=== PATIENT | female | born 1990 | race Hispanic/Latino ===

== ENCOUNTER 2022-09-01 22:29 | Inpatient (IN) | payer BC ==
[~2022-09-01] VITALS: Ht 154.9 cm; Wt 165.6 kg
[2022-09-01] MEDS ORDERED: ONDANSETRON HCL INJ 2MG/ML 2ML 2 MG/ML VIAL IV STA (22:49)
[2022-09-01] MEDS ORDERED: ONDANSETRON HCL INJ 2MG/ML 2ML 2 MG/ML VIAL ONE (22:53)
[2022-09-01] MEDS ORDERED: Morphine 4mg INJECTION 4 MG/ML INJ ONE (22:53)
[2022-09-01] MEDS ORDERED: SODIUM CHLORIDE 0.9% 1000ML 1,000 ML ONE (22:54)
[2022-09-01] MEDS ORDERED: SODIUM CHLORIDE 0.9% 1000ML 1,000 ML IV ONE (23:00)
[2022-09-01] MEDS ORDERED: Morphine 4mg INJECTION 4 MG/ML INJ IV ONE (23:00)
[2022-09-01 23:07] LABS: BASOPHILS # (AUTO) 0.1 (0.0-0.1); BASOPHILS % 0.5 % (0.0-1.0); EOSINOPHILS # (AUTO) 0.3 (0.0-0.4); EOSINOPHILS % 2.4 % (0.0-6.0); HEMOGLOBIN 14.9 g/dL (12.0-16.0); LYMPHOCYTES # (AUTO) 2.7 (1.0-3.2); LYMPHOCYTES % 20.9 % (18.0-39.1); MEAN CORPUSCULAR HEMOGLOBIN 31.1 pg (28-32); MEAN CORPUSCULAR HGB CONC 34.7 g/dL (31-35); MEAN CORPUSCULAR VOLUME 89.8 fL (81-99); MONOCYTES # (AUTO) 0.8 (0.2-0.8); MONOCYTES % 6.2 % (4.4-11.3); NEUTROPHILS # (AUTO) 8.9 (2.1-6.9); NEUTROPHILS % 69.5 % (38.7-80.0); PLATELET COUNT 375 x10e3/uL (140-360); RED BLOOD COUNT 4.79 x10e6/uL (3.6-5.1); RED CELL DISTRIBUTION WIDTH 12.5 % (11.7-14.4)
[2022-09-01 23:08] LABS: CLARITY,URINE SL CLOUDY (CLEAR); COLOR,URINE YELLOW (YELLOW)
[2022-09-01 23:09] LABS: KETONES,URINE NEGATIVE (NEGATIVE); LEUKOCYTE ESTERASE ,URINE TRACE (NEGATIVE); NITRITE,URINE NEGATIVE (NEGATIVE); PROTEIN,URINE DIPSTICK 2+ (NEGATIVE)
[2022-09-01 23:12] LABS: BACTERIA,URINE FEW /HPF; EPITHELIAL CELLS,URINE FEW /LPF
[2022-09-01 23:27] LABS: ALANINE AMINOTRANSFERASE 51 IU/L (0-55); ALBUMIN/GLOBULIN RATIO 1.1 (0.8-2.0); ALKALINE PHOSPHATASE 98 IU/L (40-150); ANION GAP 16.5 mmol/L (8-16); BLOOD UREA NITROGEN 11 mg/dL (7-26); BUN/CREATININE RATIO 14 (6-25); CALCIUM 9.6 mg/dL (8.4-10.2); CARBON DIOXIDE 23 mmol/L (22-29); CHLORIDE 105 mmol/L (98-107); CREATININE, SERUM 0.81 mg/dL (0.57-1.11); GLUCOSE 126 mg/dL (74-118); LIPASE 21 U/L (8-78); POTASSIUM 3.5 mmol/L (3.5-5.1); SODIUM 141 mmol/L (136-145)
[2022-09-02] MEDS ORDERED: KETOROLAC TROMETHAMINE 30 MG/ML VIAL IV STA
[2022-09-02] MEDS ORDERED: KETOROLAC TROMETHAMINE 30 MG/ML VIAL ONE (00:04)
[2022-09-02] MEDS ORDERED: IOPAMIDOL 370 MG/ML 100 ML INFUS..BTL INJ ONE (01:11)
[2022-09-02] MEDS ORDERED: PIPERACILLIN/TAZOBACTAM 4.5 GM in SODIUM CHLORIDE 0.9% 100 ML IV SCH (03:30)
[2022-09-02] MEDS: Morphine 4mg INJECTION 4 MG/ML INJ IV PRN ×2 (03:54→08:15)
[2022-09-02] MEDS: ONDANSETRON HCL INJ 2MG/ML 2ML 2 MG/ML VIAL IV PRN ×2 (03:54→08:12)
[2022-09-02] MEDS: SODIUM CHLORIDE 0.9% 1000ML 1,000 ML IV SCH ×3 (03:54→22:21)
[2022-09-02] MEDS: PIPERACILLIN/TAZOBACTAM 4.5 GM in SODIUM CHLORIDE 0.9% 100 ML IV SCH ×3 (10:35→22:21)
[2022-09-02 13:30] VITALS: BP 164/92; PULSE 85; RESP 18; TEMP 98.6; O2SAT 99
[2022-09-02] MEDS ORDERED: BUPIVACAINE 0.5%/EPI 30 ML SDV INJ ONE (13:40)
[2022-09-02] MEDS ORDERED: BUPIVACAINE 0.25% 30ML SDV ONE (13:40)
[2022-09-02] MEDS ORDERED: NAPROXEN250 MG PO (15:47)
[2022-09-02] MEDS ORDERED: NEXIUM40 MG PO (15:47)
[2022-09-02 15:54] VITALS: BP 164/92; O2SAT 99
[2022-09-02 16:20] VITALS: BP 151/88
[2022-09-02 20:15] VITALS: BP 140/84; PULSE 93; RESP 18; TEMP 98.6; O2SAT 99
[2022-09-03] VITALS (7 sets, daily range): BP systolic 130–157; BP diastolic 74–96; PULSE 72–88; RESP 17–21; TEMP 97.4–99.3; O2SAT 96–100
[2022-09-03] MEDS: PIPERACILLIN/TAZOBACTAM 4.5 GM in SODIUM CHLORIDE 0.9% 100 ML IV SCH ×4 (04:52→19:45)
[2022-09-03] MEDS: SODIUM CHLORIDE 0.9% 1000ML 1,000 ML IV SCH (04:52)
[2022-09-03 05:35] LABS: BASOPHILS % 0.5 % (0.0-1.0); EOSINOPHILS # (AUTO) 0.2 (0.0-0.4); EOSINOPHILS % 2.2 % (0.0-6.0); HEMATOCRIT 40.1 % (34.2-44.1); HEMOGLOBIN 13.2 g/dL (12.0-16.0); LYMPHOCYTES # (AUTO) 1.1 (1.0-3.2); LYMPHOCYTES % 14.9 % (18.0-39.1); MEAN CORPUSCULAR HEMOGLOBIN 31.1 pg (28-32); MEAN CORPUSCULAR HGB CONC 32.9 g/dL (31-35); MEAN CORPUSCULAR VOLUME 94.4 fL (81-99); MONOCYTES # (AUTO) 0.6 (0.2-0.8); MONOCYTES % 7.5 % (4.4-11.3); NEUTROPHILS # (AUTO) 5.6 (2.1-6.9); NEUTROPHILS % 74.5 % (38.7-80.0); PLATELET COUNT 317 x10e3/uL (140-360); RED BLOOD COUNT 4.25 x10e6/uL (3.6-5.1); RED CELL DISTRIBUTION WIDTH 12.8 % (11.7-14.4)
[2022-09-03 05:46] LABS: INR 1.01; PARTIAL THROMBOPLASTIN TIME 25.9 seconds (23.8-35.5); PROTHROMBIN TIME 13.8 seconds (11.9-14.5)
[2022-09-03 06:02] LABS: ALBUMIN 3.2 g/dL (3.5-5.0); ALBUMIN/GLOBULIN RATIO 0.9 (0.8-2.0); ANION GAP 12.6 mmol/L (8-16); CALCIUM 8.8 mg/dL (8.4-10.2); CREATININE, SERUM 0.67 mg/dL (0.57-1.11); POTASSIUM 3.6 mmol/L (3.5-5.1)
[2022-09-03] MEDS ORDERED: BUPIVACAINE 0.5%/EPI 30 ML SDV INJ ONE (09:57)
[2022-09-03] MEDS ORDERED: ACETAMINOPHEN 1000 MG/100 ML 100 ML IV ONE (10:16)
[2022-09-03] MEDS ORDERED: IOPAMIDOL 300MG/ML 100 ML INFUS..BTL IV ONE (10:38)
[2022-09-03] MEDS ORDERED: IOPAMIDOL 610MG/1ML 300 MG/ML VIAL IV ONE ×2 (10:41→12:16)
[2022-09-03] MEDS ORDERED: SUGAMMADEX SODIUM 200 MG/2 ML VIAL IV ONE (10:49)
[2022-09-03] MEDS ORDERED: ONDANSETRON HCL INJ 2MG/ML 2ML 2 MG/ML VIAL ONE (13:29)
[2022-09-03] MEDS ORDERED: KETOROLAC TROMETHAMINE 30 MG/ML VIAL ONE (13:29)
[2022-09-03] MEDS ORDERED: GLYCOPYRROLATE INJ 0.2 MG/ML VIAL ONE (13:29)
[2022-09-03] MEDS ORDERED: SUCCINYLCHOLINE CHLORIDE 20 MG/ML 10ML VIAL ONE (13:29)
[2022-09-03] MEDS ORDERED: NEOSTIGMINE 1 MG/ML 10ML VIAL ONE (13:29)
[2022-09-03] MEDS ORDERED: PROPOFOL IV EMULSION 10 MG/ML 20 ML VIAL ONE (13:29)
[2022-09-03] MEDS ORDERED: DEXAMETHASONE SOD PHOS INJ 4 MG/ML SDV ONE (13:29)
[2022-09-03] MEDS ORDERED: POVIDONE IODINE 0.05% 0.05 % ML PO ONE (13:29)
[2022-09-03] MEDS ORDERED: LIDOCAINE HCL 2% LOCAL INJ 5 ML SDV VIAL INJ ONE (13:29)
[2022-09-03] MEDS ORDERED: ROCURONIUM BROMIDE 10 MG/ML 5ML VIAL IV ONE (13:29)
[2022-09-03] MEDS ORDERED: SEVOFLURANE INHAL SOLN 250 ML PEN BTL ONE (13:29)
[2022-09-03] MEDS ORDERED: FENTANYL CITRATE/PF 100MCG/2 ML INJ ONE (13:30)
[2022-09-03] MEDS ORDERED: HYDROMORPHONE 1MG/1ML INJ IV PRN (13:45)
[2022-09-03] MEDS ORDERED: KETOROLAC TROMETHAMINE 30 MG/ML VIAL IV PRN (13:45)
[2022-09-03] MEDS: HYDROCODONE/APAP 7.5MG-325MG 1 EA TAB PO PRN (21:34)
[2022-09-04] VITALS (7 sets, daily range): BP systolic 118–149; BP diastolic 62–90; PULSE 74–84; RESP 18–20; TEMP 98.1–99.1; O2SAT 98–100
[2022-09-04] MEDS: SODIUM CHLORIDE 0.9% 1000ML 1,000 ML IV SCH ×4 (02:08→11:56)
[2022-09-04] MEDS: PIPERACILLIN/TAZOBACTAM 4.5 GM in SODIUM CHLORIDE 0.9% 100 ML IV SCH ×3 (04:27→16:57)
[2022-09-04 05:42] LABS: BASOPHILS % 0.3 % (0.0-1.0); EOSINOPHILS % 0.1 % (0.0-6.0); HEMATOCRIT 38.5 % (34.2-44.1); HEMOGLOBIN 12.8 g/dL (12.0-16.0); LYMPHOCYTES # (AUTO) 1.1 (1.0-3.2); LYMPHOCYTES % 9.7 % (18.0-39.1); MEAN CORPUSCULAR HEMOGLOBIN 30.9 pg (28-32); MEAN CORPUSCULAR HGB CONC 33.2 g/dL (31-35); MONOCYTES % 8.2 % (4.4-11.3); NEUTROPHILS # (AUTO) 9.5 (2.1-6.9); NEUTROPHILS % 81.2 % (38.7-80.0); PLATELET COUNT 324 x10e3/uL (140-360); RED BLOOD COUNT 4.14 x10e6/uL (3.6-5.1); RED CELL DISTRIBUTION WIDTH 12.5 % (11.7-14.4)
[2022-09-04 06:29] LABS: ALBUMIN 3.1 g/dL (3.5-5.0); ALBUMIN/GLOBULIN RATIO 0.8 (0.8-2.0); ANION GAP 13.6 mmol/L (8-16); CALCIUM 8.7 mg/dL (8.4-10.2); CREATININE, SERUM 1.2 mg/dL (0.57-1.11); POTASSIUM 3.6 mmol/L (3.5-5.1)
[2022-09-04] MEDS: HYDROCODONE/APAP 7.5MG-325MG 1 EA TAB PO PRN (09:10)
== END 2022-09-04 18:39 | disposition home or self-care (01) | DRG 418 ==
LOC: ER 22:40 → ERHOLD 09-02 03:37 → OBSVTOIN 09-02 09:10 → MED/SURG2 09-02 14:05
PROVIDERS: ADMIT Internal Medicine; ATTEND Internal Medicine
PROC: 0FT44ZZ Resection of Gallbladder, Percutaneous Endoscopic Approach (ICD-10-PCS; principal; 2022-09-04)
PROC: BF532Z0 Other Imaging of Gallbladder and Bile Ducts using Fluorescing Agent, Intraoperative (ICD-10-PCS; 2022-09-04)
DX: K80.10 Calculus of gallbladder with chronic cholecystitis without obstruction (principal); Z68.44 Body mass index [BMI] 60.0-69.9, adult; K75.9 Inflammatory liver disease, unspecified; K21.9 Gastro-esophageal reflux disease without esophagitis; K29.60 Other gastritis without bleeding; G47.30 Sleep apnea, unspecified; E28.2 Polycystic ovarian syndrome; K76.0 Fatty (change of) liver, not elsewhere classified; E66.01 Morbid (severe) obesity due to excess calories; I10 Essential (primary) hypertension; Z20.822 Contact with and (suspected) exposure to COVID-19
CPT/HCPCS: 36415; 71045; 74177; 74300; 76705; 80053; 81001; 82948; 83690; 84702; 85025; 85610; 85730; 88304; 93005; 94799; 96360; 99284; C1766; J0330; J1100; J1885; J2001; J2270; J2405; J2543; J2710; J7030; J7050; Q9967